=== PATIENT | male | born 1960 | race Caucasian/White ===

== ENCOUNTER → 2016-04-26 | Outpatient (CLI) | payer BC | LOC: LAB 08:29 | DX: Z12.5 Encounter for screening for malignant neoplasm of prostate (principal); Z82.49 Family history of ischemic heart disease and other diseases of the circulatory system; Z13.1 Encounter for screening for diabetes mellitus ==

== ENCOUNTER → 2018-03-10 | Outpatient (CLI) | payer BC ==
[2018-03-10 07:09] LABS: ALBUMIN 4.5 g/dL (3.5-5.0); CALCIUM 9.6 mg/dL (8.4-10.2); POTASSIUM 4.8 mmol/L (3.6-5.0); TOTAL BILIRUBIN 0.8 mg/dL (0.2-1.3); TOTAL PROTEIN 7.6 g/dL (6.3-8.2)
== END ==
LOC: LAB 06:14
PROVIDERS: Family Medicine
DX: Z12.5 Encounter for screening for malignant neoplasm of prostate (principal); Z13.1 Encounter for screening for diabetes mellitus; Z13.6 Encounter for screening for cardiovascular disorders

== ENCOUNTER → 2020-03-26 | Outpatient (CLI) | payer BC ==
[2020-03-26 08:25] LABS: POTASSIUM 4.5 mmol/L (3.5-5.1)
[2020-03-26 08:26] LABS: ALBUMIN 4.3 g/dL (3.4-4.8)
[2020-03-26 08:27] LABS: CALCIUM 9.2 mg/dL (8.3-10.5)
[2020-03-26 08:28] LABS: TOTAL PROTEIN 7.4 g/dL (6.2-8.1)
[2020-03-26 08:30] LABS: TOTAL BILIRUBIN 0.7 mg/dL (0.2-1.2)
[2020-03-26 09:34] LABS: EOS # 0.1 (0.04-0.40); EOS % 1.9 % (0.0-4.0); HEMOGLOBIN 15.9 g/dL (13.5-18.0); LYMPH# 1.6 (1.50-4.00); MEAN CELL VOLUME 88 fl (78-100); MEAN CORPUSCULAR HEMOGLOBIN 29 pg (27-31); MEAN CORPUSCULAR HGB CONC 33 g/dL (33-37); MEAN PLATELET VOLUME 9.7 fl (7.4-10.4); MONO # 0.7 (0.20-0.80); NEU # 4.6 (1.40-6.50); PLATELET COUNT 279 K/mm3 (130-400); RED BLOOD COUNT 5.43 M/mm3 (4.20-5.60); RED CELL DISTRIBUTION WIDTH 13.9 % (11.5-14.5)
== END ==
LOC: LAB 07:53
PROVIDERS: Family Medicine
DX: Z12.5 Encounter for screening for malignant neoplasm of prostate (principal); Z13.1 Encounter for screening for diabetes mellitus; E78.00 Pure hypercholesterolemia, unspecified; R22.1 Localized swelling, mass and lump, neck

== ENCOUNTER → 2020-04-24 | Outpatient (CLI) | payer BC | LOC: CARDREHAB 10:47 | DX: E78.00 Pure hypercholesterolemia, unspecified (principal) ==

== ENCOUNTER → 2020-07-14 | Outpatient (CLI) | payer BC | LOC: LAB 08:39 | DX: E78.00 Pure hypercholesterolemia, unspecified (principal); I10 Essential (primary) hypertension ==

== ENCOUNTER → 2020-08-12 | Outpatient (CLI) | payer BC | LOC: CARDREHAB 14:04 | DX: R06.00 Dyspnea, unspecified (principal) | CPT/HCPCS: G0399 ==

== ENCOUNTER → 2021-03-27 | Outpatient (CLI) | payer BC ==
[2021-03-27 07:45] LABS: ALBUMIN 4.3 g/dL (3.4-4.8); POTASSIUM 3.9 mmol/L (3.5-5.1)
[2021-03-27 07:46] LABS: CALCIUM 9.5 mg/dL (8.3-10.5)
[2021-03-27 07:47] LABS: TOTAL PROTEIN 7.9 g/dL (6.2-8.1)
[2021-03-27 07:49] LABS: TOTAL BILIRUBIN 0.6 mg/dL (0.2-1.2)
== END ==
LOC: LAB 07:22
PROVIDERS: Family Medicine
DX: Z12.5 Encounter for screening for malignant neoplasm of prostate (principal); I10 Essential (primary) hypertension; E78.00 Pure hypercholesterolemia, unspecified

== ENCOUNTER → 2021-04-09 | Outpatient (CLI) | payer BC | LOC: LAB 09:40 | DX: R73.03 Prediabetes (principal) ==

== ENCOUNTER → 2021-07-23 | Outpatient (CLI) | payer BC ==
[2021-07-23 07:24] LABS: ALBUMIN 4.4 g/dL (3.4-4.8); POTASSIUM 3.5 mmol/L (3.5-5.1)
[2021-07-23 07:26] LABS: CALCIUM 9.7 mg/dL (8.3-10.5)
[2021-07-23 07:27] LABS: TOTAL PROTEIN 7.7 g/dL (6.2-8.1)
[2021-07-23 07:29] LABS: TOTAL BILIRUBIN 0.9 mg/dL (0.2-1.2)
== END ==
LOC: LAB 06:58
PROVIDERS: Family Medicine
DX: Z12.5 Encounter for screening for malignant neoplasm of prostate (principal); E78.00 Pure hypercholesterolemia, unspecified; I10 Essential (primary) hypertension

== ENCOUNTER → 2022-02-25 | Outpatient (CLI) | payer BC ==
[2022-02-25 07:33] LABS: ALBUMIN 4.1 g/dL (3.4-4.8); POTASSIUM 3.4 mmol/L (3.5-5.1)
[2022-02-25 07:34] LABS: CALCIUM 9.4 mg/dL (8.3-10.5)
[2022-02-25 07:35] LABS: TOTAL PROTEIN 7.3 g/dL (6.2-8.1)
[2022-02-25 07:37] LABS: TOTAL BILIRUBIN 0.9 mg/dL (0.2-1.2)
== END ==
LOC: LAB 07:10
PROVIDERS: Family Medicine
DX: Z12.5 Encounter for screening for malignant neoplasm of prostate (principal); I10 Essential (primary) hypertension; E78.00 Pure hypercholesterolemia, unspecified; G47.33 Obstructive sleep apnea (adult) (pediatric); R09.81 Nasal congestion

== ENCOUNTER → 2022-04-09 | Outpatient (CLI) | payer BC ==
[2022-04-09 09:14] LABS: BASO # 0.03 K/mm3 (0.02-0.10); EOS # 0.11 K/mm3 (0.04-0.40); EOS % 1.9 % (0.0-4.0); HEMATOCRIT 47.6 % (42.0-52.0); HEMOGLOBIN 16.5 g/dL (13.5-18.0); LYMPH# 1.37 K/mm3 (1.50-4.00); MEAN CELL VOLUME 87 fl (78-100); MEAN CORPUSCULAR HEMOGLOBIN 30 pg (27-31); MEAN CORPUSCULAR HGB CONC 35 g/dL (33-37); MEAN PLATELET VOLUME 9.1 fl (7.4-10.4); MONO # 0.52 K/mm3 (0.20-0.80); NEU # 3.85 K/mm3 (1.40-6.50); PLATELET COUNT 263 K/mm3 (130-400); RED BLOOD COUNT 5.45 M/mm3 (4.20-5.60); RED CELL DISTRIBUTION WIDTH 13.2 % (11.5-14.5); WHITE BLOOD COUNT 5.9 K/mm3 (4.8-10.8)
== END ==
LOC: LAB 08:52
PROVIDERS: Family Medicine
DX: Z00.00 Encounter for general adult medical examination without abnormal findings (principal); Z12.5 Encounter for screening for malignant neoplasm of prostate; I10 Essential (primary) hypertension; H83.3X9 Noise effects on inner ear, unspecified ear; G47.33 Obstructive sleep apnea (adult) (pediatric); E78.00 Pure hypercholesterolemia, unspecified; R73.03 Prediabetes

== ENCOUNTER → 2022-04-29 | Outpatient (CLI) | payer BC ==
[2022-04-29 08:30] LABS: URINE APPEARANCE CLEAR
[2022-04-29 08:31] LABS: PH-URINE 7.5 (5.0 - 8.0); URINE BILIRUBIN NEGATIVE (NEGATIVE); URINE BLOOD NEGATIVE (NEGATIVE); URINE COLOR LIGHT YELLOW; URINE GLUCOSE NEGATIVE (NEGATIVE); URINE KETONE NEGATIVE (NEGATIVE); URINE NITRATE NEGATIVE (NEGATIVE); URINE PROTEIN(semi-quant) TRACE (NEGATIVE); URINE UROBILINOGEN NORMAL (NORMAL); URINE WBC 0-1 /hpf (0-3)
[2022-04-29 08:34] LABS: URINE LEUKOCYTE ESTERASE NEGATIVE (NEGATIVE)
== END ==
LOC: LAB 08:04
PROVIDERS: Family Medicine
DX: Z02.4 Encounter for examination for driving license (principal); I10 Essential (primary) hypertension; E78.00 Pure hypercholesterolemia, unspecified; R80.0 Isolated proteinuria; H83.3X9 Noise effects on inner ear, unspecified ear; G47.33 Obstructive sleep apnea (adult) (pediatric); R73.03 Prediabetes

== ENCOUNTER → 2022-06-14 | Day surgery (SDC) | payer BC | END | disposition home or self-care (01) | LOC: EDSTATUS 09:11 → MSO 09:14 | DX: Z12.11 Encounter for screening for malignant neoplasm of colon (principal); D12.5 Benign neoplasm of sigmoid colon; G47.33 Obstructive sleep apnea (adult) (pediatric) | CPT/HCPCS: 00811; J2704; J7120 ==

== ENCOUNTER → 2023-09-06 | Outpatient (CLI) | payer MEDICARE | LOC: CARDREHAB 08:30 | DX: G47.33 Obstructive sleep apnea (adult) (pediatric) (principal) | CPT/HCPCS: G0399 ==

== ENCOUNTER → 2023-12-23 | Outpatient (CLI) | payer MEDICARE ==
[2023-12-23 07:38] LABS: CALCIUM 9.4 mg/dL (8.3-10.5)
[2023-12-23 17:36] LABS: CREATININE OTHER SOURCE 46 mg/dL (47-110)
== END ==
LOC: LAB 07:16
PROVIDERS: Family Medicine
DX: I10 Essential (primary) hypertension (principal)